=== PATIENT | male | born 1985 | race Caucasian/White ===

== ENCOUNTER 2020-07-27 23:39 | Emergency (ER) | payer OTHER, SELFPAY ==
[2020-07-27 23:51] VITALS: BP 123/86; PULSE 110; RESP 18; TEMP 37.1; O2SAT 98
[2020-07-28] MEDS: CEPHALEXIN 500 MG CAPSULE PO (01:15)
--- NOTE | 2020-07-28 01:38 | ED.GENADULT ---
HPI - General Adult General Chief complaint: Extremity Injury, Upper Stated complaint: rt hand pinky finger swelling Time Seen by Provider: 07/28/20 00:17 Source: patient Mode of arrival: ambulatory Limitations: no limitations History of Present Illness HPI narrative: This patient is a 35 year old male who presents for evaluation of a right hand infection. Patient states he noticed a wound to his right 5th finger yesterday. His significant other reports she squeezed out pus . They reports his finger was more swollen but it is still red and swollen. He denies fever or chills. He reports he had an episode of vomiting when she was squeezing his finger. He is unsure of how he got the wound. HE thinks it may be a spider bite. HE denies history of similar infection in the past. Related Data Allergies Allergy/AdvReac Type Severity Reaction Status Date / Time No Known Allergies Allergy Verified 02/10/19 14:30 Review of Systems Review of Systems: All systems reviewed & are unremarkable except as noted in HPI and below PMFSH Past Medical History Medical History (Updated 07/28/20 @ 01:44 by Astrid Patel MD) Patient denies medical problems Surgical History Surgical History (Updated 07/28/20 @ 01:41 by Astrid Patel MD) No significant past surgical history Social History Social History (Updated 07/28/20 @ 01:41 by Astrid Patel MD) Smoking packs per day: 2 Smoking cigarettes per day: 40.0 Smoking status: Current every day smoker Exam Const: General: no acute distress and alert Orientation/consciousness: patient oriented x3 HENMT: Head: atraumatic Face and sinus: face symmetric Eyes: EOM: EOMs intact bilaterally Resp: Effort & Inspection: normal respiratory effort Extrem: Other: right hand with small ulceration dorsum of right 5th finger, with surrounding erythema to dorsum finger and lateral hand, no fluctuance. Psych: Mental Status: mental status grossly normal Affect: normal affect Course Reevaluation(s) Reevaluation #1: I have discussed with patient that he will be treated for cellulitis. Date: 07/28/20 Time: 01:42 Vital Signs Vital signs: Vital Signs Temperature 98.7 F 07/27/20 23:51 Pulse Rate 110 H 07/27/20 23:51 Respiratory Rate 18 07/27/20 23:51 Blood Pressure 123/86 07/27/20 23:51 Pulse Oximetry 98 07/27/20 23:51 Temperature 98.7 F 07/27/20 23:51 Pulse Rate 92 07/28/20 02:00 Respiratory Rate 18 07/28/20 02:00 Blood Pressure 119/69 07/28/20 02:00 Pulse Oximetry 97 07/28/20 02:00 Medical Decision Making Vital Signs Vital Signs: Vital Signs Temperature 98.7 F 07/27/20 23:51 Pulse Rate 110 H 07/27/20 23:51 Respiratory Rate 18 07/27/20 23:51 Blood Pressure 123/86 07/27/20 23:51 Pulse Oximetry 98 07/27/20 23:51 Temperature 98.7 F 07/27/20 23:51 Pulse Rate 92 07/28/20 02:00 Respiratory Rate 18 07/28/20 02:00 Blood Pressure 119/69 07/28/20 02:00 Pulse Oximetry 97 07/28/20 02:00 Discharge Plan Discharge Clinical Impression: Cellulitis of multiple sites of right hand and fingers Patient Disposition: Home, Self-Care Condition: Stable Instructions: Antibiotic Form, Cellulitis (ED) Additional Instructions: Apply warm compresses to your finger and hand 3 times a day. Take antibiotics as prescribed. Take tylenol and ibuprofen as prescribed. Prescriptions: New cephalexin [Keflex] 500 mg capsule 500 mg PO Q6H 10 Days Qty: 40 RF: 0 sulfamethoxazole-trimethoprim [Bactrim DS] 800-160 mg tablet 1 tablet PO Q12H Qty: 14 RF: 0 Follow-up/Referrals: PHYSICIAN,[facility]ER [Primary Care Provider] - Toan Guerra DO [Physician] -
[2020-07-28 02:00] VITALS: BP 119/69; PULSE 92; RESP 18; O2SAT 97
== END 2020-07-28 02:02 | disposition home or self-care (01) ==
PROVIDERS: Emergency Provider General Practice
DX: L03.011 Cellulitis of right finger (principal); L03.113 Cellulitis of right upper limb; F17.210 Nicotine dependence, cigarettes, uncomplicated
CPT/HCPCS: 99283; A9270

== ENCOUNTER 2022-01-27 21:57 | Emergency (ER) | payer OTHER, SELFPAY ==
[2022-01-27 22:27] VITALS: BP 98/68; PULSE 66; RESP 18; TEMP 36.4; O2SAT 100
[2022-01-28] MEDS: AMPICILLIN SULB 3 GM/NS 100 ML 3 GM/100 ML VIAL IVPB (01:54)
--- NOTE | 2022-01-28 01:59 | PC.NURSE ---
Barcode on Ampicillin did not scan. Manually overriden by RN. Medication and dose confirmed by two RNs.
--- NOTE | 2022-01-28 02:58 | ED.ANIMALBIT ---
HPI - Animal Bite General Chief Complaint: Animal Bite Stated Complaint: Dog Bite Time Seen by Provider: 01/28/22 01:00 Source: patient Mode of arrival: ambulatory Limitations: no limitations History of Present Illness HPI narrative: This is a right hand dominant male who presents for evaluation of right hand wound. Patient suffered a wound to palm of his right hand tonight when he was breaking up a dog fight. He has pain to his hand and has difficulty moving his fingers due to pain. Denies numbness or tingling. He states he has received a tetanus prophylaxis within this past year. Related Data Allergies Allergy/AdvReac Type Severity Reaction Status Date / Time No Known Allergies Allergy Verified 01/28/22 01:05 Review of Systems Review of Systems: All systems reviewed & are unremarkable except as noted in HPI and below PMFSH Past Medical History Medical History (Updated 01/29/22 @ 00:00 by Kelby Wild) Patient denies medical problems Surgical History Surgical History (Updated 07/28/20 @ 01:41 by Astrid Patel MD) No significant past surgical history Social History Social History (Updated 07/28/20 @ 01:41 by Astrid Patel MD) Smoking packs per day: 2 Smoking cigarettes per day: 40.0 Smoking status: Current every day smoker Exam Const: General: no acute distress and alert Orientation/consciousness: patient oriented x3 Eyes: EOM: EOMs intact bilaterally Chest: Chest palpation & inspection: normal inspection of the chest Resp: Effort & Inspection: normal respiratory effort Neuro: General: patient oriented x3 and moves all extremities Extrem: Other: right hand with 1. 5 cm wound to mid palm, no bleeding. Patient has pain with flexion /extension of fingers. Sensation intact. Psych: Mental Status: mental status grossly normal Affect: normal affect Course Reevaluation(s) Reevaluation #1: I Discussed with patient plan to discharge after starting antibiotics. I Discussed you sutures to be placed due to dog bite. He will be given referral to call Dr. Williamson in the morning. His wound was washed out by staff. Date: 01/28/22 Time: 03:03 Vital Signs Vital signs: Vital Signs Temperature 97.5 F L 01/27/22 22:27 Pulse Rate 66 01/27/22 22:27 Respiratory Rate 18 01/27/22 22:27 Blood Pressure 98/68 L 01/27/22 22:27 Pulse Oximetry 100 01/27/22 22:27 Temperature 97.5 F L 01/27/22 22:27 Pulse Rate 61 01/28/22 03:33 Respiratory Rate 18 01/28/22 03:33 Blood Pressure 103/62 01/28/22 03:33 Pulse Oximetry 100 01/28/22 03:33 Discharge Plan Discharge Clinical Impression: Dog bite of right hand Patient Disposition: Home, Self-Care Condition: Stable Instructions: Antibiotic Form, Animal Bite (ED) Additional Instructions: Please call Dr. Williamson today to arrange for follow up reevaluation of your hand this week. Take antibiotics as prescribed. Keep your wound clean and covered. if you develop hand swelling, fever or purulent drainage return to ER Prescriptions: New amoxicillin-pot clavulanate 875-125 mg tablet 1 tablet PO Q12H Qty: 20 RF: 0 ibuprofen 800 mg tablet 800 mg PO TID PRN (Reason: pain) Qty: 10 RF: 0 No Action cephalexin [Keflex] 500 mg capsule 500 mg PO Q6H 10 Days Qty: 40 RF: 0 sulfamethoxazole-trimethoprim [Bactrim DS] 800-160 mg tablet 1 tablet PO Q12H Qty: 14 RF: 0 Follow-up/Referrals: Tamar Peterson MD [Physician] - Guero Williamson MD [Physician] - PHYSICIAN,TA[facility] [employer] [facility]ORTER [Primary Care Provider] - Stand Alone Forms: Work/School Release IP
[2022-01-28 03:33] VITALS: BP 103/62; PULSE 61; RESP 18; O2SAT 100
== END 2022-01-28 03:26 | disposition home or self-care (01) ==
PROVIDERS: Emergency Provider General Practice
DX: S61.451A Open bite of right hand, initial encounter (principal); F17.210 Nicotine dependence, cigarettes, uncomplicated; W54.0XXA Bitten by dog, initial encounter
CPT/HCPCS: 96365; 99284; J0295